=== PATIENT | female | born 1995 | race Caucasian/White ===

== ENCOUNTER 2017-09-08 18:37 | Observation (INO) | payer MEDICAID ==
[~2017-09-08] VITALS: Ht 157.5 cm; Wt 73.2 kg
[2017-09-08] MEDS ORDERED: VITAMIN D 1001000 IU PO (18:48)
[2017-09-08] MEDS ORDERED: PRENATAL 191 CTB PO (18:48)
[2017-09-08 19:57] LABS: BASO # 0.1 (0.0-0.2); BASO % 0.7 % (0.0-2.0); EOS # 0.2 (0.0-0.7); EOS % 2.2 % (0-4.0); GRAN # 4.8 (1.4-6.5); GRAN % 65.2 % (42.2-75.2); HEMOGLOBIN 13.2 g/dl (12.5-16.0); LYMPH # 1.9 (1.2-3.4); LYMPH % 26.3 % (20.0-51.0); MEAN CELL VOLUME 89 fl (80.0-100.0); MEAN CORPUSCULAR HEMOGLOBIN 30 pg (27.0-31.0); MEAN CORPUSCULAR HGB CONC 34 g/dl (33.0-37.0); MONO # 0.4 (0.1-0.6); MONO % 5.5 % (1.7-9.3); PLATELET COUNT 184 K/mm3 (130-400); REDCELL DISTRIBUTION WIDTH-CV 13.4 % (11.5-14.5)
[2017-09-08 20:05] LABS: ALBUMIN 4.3 gm/dL (3.5-5.0); BILIRUBIN,TOTAL 0.3 mg/dL (0.0-1.0); CALCIUM 9.6 mg/dL (8.4-10.2); CREATININE, serum 0.68 mg/dL (0.52-1.25); POTASSIUM 3.9 mmol/L (3.4-5.0); TOTAL PROTEIN 7.4 gm/dL (6.4-8.2)
[2017-09-08 20:57] LABS: COLLECTION METHOD CLEAN CATCH
[2017-09-08 21:03] LABS: PH 6 (5-8); URINE APPEARANCE Hazy; URINE BILIRUBIN Negative (NEGATIVE); URINE COLOR Yellow; URINE GLUCOSE Negative (NEGATIVE); URINE KETONE Negative (NEGATIVE); URINE PROTEIN(semi-quant) Negative (NEGATIVE)
[2017-09-08 21:04] LABS: MUCOUS Present /lpf; URINE BACTERIA Rare /hpf; URINE BLOOD 3+ (NEGATIVE); URINE LEUKOCYTE ESTERASE Negative (NEGATIVE); URINE NITRATE Negative (NEGATIVE)
[2017-09-08] MEDS ORDERED: PERCOCET 325 MG1 TA2 PO (23:46)
[2017-09-08] MEDS ORDERED: MOTRIN 800800 MG/TAB PO (23:46)
[2017-09-09] VITALS (11 sets, daily range): BP systolic 90–110; BP diastolic 43–64; PULSE 60–83; TEMP 97.9–98.5
== END 2017-09-09 09:00 | disposition home or self-care (01) ==
LOC: COL.ER 18:37 → SDCO 23:05 → OB 23:05 → SDCO 09-09 00:48 → OB 09-09 09:00
PROVIDERS: Emergency Medicine
DX: O03.4 Incomplete spontaneous abortion without complication (principal)
CPT/HCPCS: OP; J2250; J2270; J2405; J2704; J2791; J3010; J7030; J7120